=== PATIENT | female | born 1970 | race Caucasian/White ===

== ENCOUNTER → 2022-07-01 09:32 | Outpatient (CLI) | payer OTHER, SELFPAY ==
--- NOTE | 2022-07-01 | DI.US.S_ITS ---
ULTRASOUND OF LEFT BREAST: 07/01/2022 CLINICAL: Nipple discharge. Comparison is made to exams dated: 07/01/2022 mammogram - and 08/03/2018 mammogram - outside location. Color flow and real-time ultrasound of the left breast were performed. Perez scale images of the real-time examination were reviewed. No significant abnormalities were seen sonographically in the left breast. IMPRESSION: NEGATIVE There is no sonographic evidence of malignancy. There is no abnormality seen in the left breast to correspond with the area of clinical concern and non-bloody discharge from the nipple in the sub-areolar depth which likely represent physiological discharge, however, recommend clinical follow up for persistent or worsening symptoms, or development of any clinically suspicious findings. A 1 year screening mammogram is recommended. Findings and recommendations were conveyed to the patient during today's evaluation. This exam was interpreted at Station ID: [id number]. Electronically Signed By: Mathieu Dc M.D. aty/:07/01/2022 10:48:22 letter sent: Clinical Evaluation Ultrasound BI-RADS: 1 Negative
--- NOTE | 2022-07-01 | DI.MG.S_ITS ---
BILATERAL DIGITAL DIAGNOSTIC MAMMOGRAM 3D/2D: 07/01/2022 CLINICAL: Discharge. Comparison is made to exams dated: 08/03/2018 mammogram - outside location, 01/12/2016 mammogram, 12/29/2015 mammogram, and 07/29/2014 mammogram - [facility]. Both breasts are heterogeneously dense, which may obscure small masses (category c / 51-75% glandular tissue). The patient is status post implant removal both breasts. The left breast has post-operative findings of the inferior subareolar region. There are benign appearing calcifications in both breasts. No significant masses, calcifications, or other findings are seen in either breast. IMPRESSION: INCOMPLETE: NEEDS ADDITIONAL IMAGING EVALUATION There is no abnormality seen in the left breast to correspond with the area of clinical concern and non-bloody discharge from the nipple. An ultrasound is recommended for further evaluation and is scheduled to immediately follow this examination. This exam was interpreted at Station ID: [id number]. NOTE: For mammograms, a report in lay terms will be sent to the patient. Approximately 15% of breast malignancies will not be visualized mammographically. In the management of a palpable breast mass, a negative mammogram must not discourage biopsy of a clinically suspicious lesion. Electronically Signed By: Mathieu Dc M.D. aty/:07/01/2022 10:32:02 ACR BI-RADS Category 0: Incomplete [id number]
== END ==
PROVIDERS: Family Provider Family Medicine; PCP Family Medicine; Referring Provider Nurse Practitioner Family; Visit Provider Nurse Practitioner Family
DX: N64.52 Nipple discharge (principal); R92.2 Inconclusive mammogram
CPT/HCPCS: 76642; 77066; G0279